=== PATIENT | male | born 1950 | race Caucasian/White ===

== ENCOUNTER 2023-03-04 21:34 | Emergency (ER) | payer MEDICARE ==
[~2023-03-04] VITALS: Ht 167.6 cm; Wt 81.8 kg
[2023-03-04 21:41] VITALS: BP 129/80
[2023-03-05] MEDS ORDERED: FLUORESCEIN SODIUM 1MG/STRIP LEFTEYE ONE (01:00)
[2023-03-05] MEDS ORDERED: ERYT1OIN6 LEFTEYE (01:16)
== END 2023-03-05 01:38 | disposition home or self-care (01) ==
LOC: ER 21:34
DX: H57.89 Other specified disorders of eye and adnexa (principal)
CPT/HCPCS: 99283

== ENCOUNTER 2024-11-28 18:40 | Emergency (ER) | payer MEDICARE ==
[~2024-11-28] VITALS: Ht 165.1 cm; Wt 78.9 kg
[~2024-11-28 18:40] MED LIST: ERYT1OIN6 LEFTEYE
[2024-11-28 18:50] VITALS: BP 122/85; PULSE 119; RESP 16; TEMP 98.6; O2SAT 99
[2024-11-29] MEDS ORDERED: ERYT1OIN6 EACHEYE (00:14)
[2024-11-29] MEDS ORDERED: IBUP-2029 MT (00:14)
[2024-11-29] MEDS: TETRACAINE 0.5% OPHTH DROPS 4ML LEFTEYE ONE (00:43)
== END 2024-11-29 01:00 | disposition home or self-care (01) ==
LOC: ER 18:40
DX: T15.92XA Foreign body on external eye, part unspecified, left eye, initial encounter (principal); N40.0 Benign prostatic hyperplasia without lower urinary tract symptoms; F19.90 Other psychoactive substance use, unspecified, uncomplicated; W44.9XXA Unspecified foreign body entering into or through a natural orifice, initial encounter; Y93.89 Activity, other specified; Y92.89 Other specified places as the place of occurrence of the external cause; Y99.8 Other external cause status
CPT/HCPCS: 99283